=== PATIENT | female | born 1945 | race Caucasian/White ===

== ENCOUNTER 2016-08-17 13:33 | Inpatient (IN) | payer MEDICARE ==
[2016-08-17] MEDS ORDERED: MULTIVITAMINS1 EAC6 PO (13:54)
[2016-08-17] MEDS ORDERED: CALCIUM600 M1 PO (13:54)
[2016-08-17] MEDS ORDERED: GLUCOSAMINE &1 EAC1 PO (13:55)
[2016-08-17] MEDS ORDERED: VITAMIN D31000 UNI3 PO (13:55)
[2016-08-17] MEDS ORDERED: VITAMIN B COMP1 EAC2 PO (13:56)
[2016-08-17] MEDS ORDERED: ALLERGY MEDICAT25 M1 PO (13:57)
[2016-08-17 16:15] LABS: MAGNESIUM 2.1 mg/dl (1.3-2.6)
[2016-08-17] MEDS ORDERED: ULTRAM50 M1 PO (16:46)
[2016-08-17] MEDS ORDERED: PROTONIX40 M2 PO (16:46)
[2016-08-17] MEDS ORDERED: BACTRIM DS TAB1 EAC2 PO (16:47)
[2016-08-18 05:29] LABS: BASO ABSOLUTE COUNT 0.1 tho/cmm (0.0-0.2); EOS % 5.2 % (0-7); EOSINOPHIL ABSOLUTE COUNT 0.3 tho/cmm (0.0-0.7); HCT-HEMATOCRIT 34.6 % (34.0-49.0); HGB-HEMOGLOBIN 11.8 gm/dl (12.0-15.5); IMMATURE GRANULOCYTES ABSOLUTE 0.04 tho/cmm (0-0.03); IMMATURE GRANULOCYTES PERCENT 0.8 % (0-0.3); LYMPH % 37.5 % (20-45); LYMPH ABSOLUTE COUNT 1.9 tho/cmm (0.8-4.5); MCH (MEAN CORPUSCULAR HGB) 28.9 pg (28.0-32.0); MCHC MEAN CORPUSCULAR HGB CONC 34.1 % (32.0-36.0); MCV (MEAN CELL VOLUME) 84.8 fl (82.0-96.0); MEAN PLATELET VOLUME 9.1 cmc (9.4-12.4); MONOCYTE ABSOLUTE COUNT 0.5 tho/cmm (0.0-1.2); NEUTROPHIL ABSOLUTE COUNT 2.3 tho/cmm (1.6-8.0); NEUTROPHIL-AUTOMATED 2.3 tho/cmm (1.6-8.0); NEUTROPHILS % 45.5 % (40-80); PLATELET COUNT 244 tho/cmm (150-450); RED BLOOD COUNT 4.08 mil/cmm (4.00-5.20); RED CELL DISTRIBUTION WIDTH 12.8 % (12.4-16.4)
[2016-08-18 05:37] LABS: INR 1.1 INR (0.9-1.1); PROTHROMBIN TIME 12.2 SECONDS (9.0-13.6)
[2016-08-18 05:46] LABS: ANION GAP 11 mmol/L (0-20); BLOOD UREA NITROGEN 8 mg/dl (6-24); C-REACTIVE PROTEIN 3.2 mg/dl (0-0.9); CALCIUM 8.2 mg/dl (8.5-10.5); CARBON DIOXIDE-VENOUS 26 mmol/L (22-32); CHLORIDE 109 mmol/l (96-110); CREATININE 0.74 mg/dl (0.50-1.10); GLUCOSE 116 mg/dL (70-110); POTASSIUM 3.3 mmol/L (3.7-5.1); SODIUM 143 mmol/L (135-145); eGFR VALUE FOR BLACK >90 mL/Min
[2016-08-18] MEDS ORDERED: TYLENOL325 M2 PO (14:45)
[2016-08-18] MEDS ORDERED: IBUPROFEN200 M2 PO (14:46)
[2016-08-18] MEDS ORDERED: ELIQUIS5 M1 PO (16:32)
== END 2016-08-18 17:34 | DRG 419 ==
LOC: 5WD 13:33 → ORW 08-18 09:38 → PACU 08-18 10:45 → 5WD 08-18 12:10
PROVIDERS: ADMIT Internal Medicine
PROC: 0FT44ZZ Resection of Gallbladder, Percutaneous Endoscopic Approach (ICD-10-PCS; principal; 2016-08-18)
PROC: BF10YZZ Fluoroscopy of Bile Ducts using Other Contrast (ICD-10-PCS; 2016-08-18)
DX: K80.10 Calculus of gallbladder with chronic cholecystitis without obstruction (principal); I48.0 Paroxysmal atrial fibrillation; R07.9 Chest pain, unspecified; Z91.030 Bee allergy status; Z91.040 Latex allergy status; M19.90 Unspecified osteoarthritis, unspecified site; Z82.49 Family history of ischemic heart disease and other diseases of the circulatory system
CPT/HCPCS: C1894; J0690; J2765; J3010; J7030; J7050; Q9966